=== PATIENT | male | born 1975 | race Asian ===

== ENCOUNTER 2025-05-03 18:53 | Emergency (ER) | payer OTHER ==
[~2025-05-03] VITALS: Ht 180.3 cm; Wt 106.6 kg
[2025-05-03] MEDS ORDERED: ATOR10TA PO (19:31)
[2025-05-03] MEDS ORDERED: EMPA25TA PO (19:31)
[2025-05-03] MEDS ORDERED: METF-442 PO (19:31)
[2025-05-03] MEDS ORDERED: HYDR25TA4 PO (19:31)
[2025-05-03] MEDS ORDERED: LOSA100T32 PO (19:31)
[2025-05-03] MEDS ORDERED: NAPR-1194 PO (19:31)
[2025-05-03] MEDS ORDERED: HYDROMORPHONE 1 MG/1 ML DISP.SYRIN ONE (19:47)
[2025-05-03] MEDS ORDERED: ONDANSETRON 4 MG/2 ML VIAL ONE (19:47)
[2025-05-03 20:14] LABS: PLATELET COUNT (AUTO) 433 K/uL (152-348); RED BLOOD CELL COUNT(AUTO) 3.93 MIL/uL (4.06-5.63); RED CELL DISTRIBUTION WIDTH 13.9 % (12.1-16.2)
[2025-05-03] MEDS: ONDANSETRON 4 MG/2 ML VIAL IV ONE (20:15)
[2025-05-03] MEDS: IV NORMAL SALINE 1000 ML BAG IV ONE ×2 (20:15→20:33)
[2025-05-03] MEDS: HYDROMORPHONE 1 MG/1 ML DISP.SYRIN IV ONE (20:15)
[2025-05-03 20:24] LABS: CREATININE 1.6 mg/dL (0.6-1.3); SODIUM SERUM 132 mmol/L (136-145); UREA NITROGEN, BLOOD 32 mg/dL (7-18)
[2025-05-03 20:25] LABS: WHITE BLOOD COUNT (AUTO) 31.7 K/uL (3.6-10.2)
[2025-05-03 20:31] LABS: ASPARTATE AMINOTRANSFERASE 39 U/L (15-37); TOTAL PROTEIN, SERUM 8.4 g/dL (6.4-8.2)
[2025-05-03 20:32] LABS: *BILIRUBIN,URIN NEGATIVE (NEGATIVE); *BLOOD, URINE 3+ (NEGATIVE); *CLARITY,URINE CLOUDY (CLEAR); *COLOR,URINE DARK YELLOW (YELLOW); *KETONES,URINE NEGATIVE (NEGATIVE); *PROTEIN,URINE 2+ (NEGATIVE); *UROBILINOGEN,URINE 2.0 E.U./dl (NORMAL); LEUKOCYTE ESTERASE ,URINE TRACE (NEGATIVE); NITRITE, URINE POSITIVE (NEGATIVE); UGLUCOSE 3+ (NEGATIVE)
[2025-05-03] MEDS ORDERED: IOHEXOL 300MG/ML 100 ML INFUS..BTL ONE (20:32)
[2025-05-03] MEDS ORDERED: CEFTRIAXONE /D5W 50ML IVPB **ER PYXIS IV ONE (20:35)
[2025-05-03] MEDS ORDERED: PIPERACILLIN/TAZOBACTAM/D5W 50 ML IV ONE (20:37)
[2025-05-03 20:48] LABS: SQUAMOUS EPITHELIAL CELL,UR FEW /HPF (NONE SEEN)
[2025-05-03 20:50] LABS: URINE AMORPHOUS URATE MODERATE /HPF
[2025-05-03 20:58] LABS: BAND % (MANUAL) 2 % (0-10); LYMPHOCYTES % (MANUAL) 3 % (20-40); MONOCYTES % (MANUAL) 3 % (2-10); NEUTROPHILS % (MANUAL) 92 % (42-75)
[2025-05-03] MEDS: PIPERACILLIN SODIUM/TAZOBACTAM 3.375 G in IV DEXTROSE 5% 50 ML IV ONE (20:58)
[2025-05-03 20:59] LABS: PLATELET ESTIMATE SLIGHT INCREASED
[2025-05-04] MEDS: IV NORMAL SALINE 500 ML BAG IV ONE (02:06)
[2025-05-04 03:29] LABS: CREATININE 1.2 mg/dL (0.6-1.3); SODIUM SERUM 138.0 mmol/L (136-145); UREA NITROGEN, BLOOD 25.0 mg/dL (7-18)
[2025-05-04 03:59] LABS: PLATELET COUNT (AUTO) 345 K/uL (152-348); RED BLOOD CELL COUNT(AUTO) 3.04 MIL/uL (4.06-5.63); RED CELL DISTRIBUTION WIDTH 14.0 % (12.1-16.2); WHITE BLOOD COUNT (AUTO) 24.3 K/uL (3.6-10.2)
[2025-05-04] MEDS ORDERED: IOHEXOL 350 100 ML INFUS..BTL ONE (08:44)
[2025-05-04] MEDS ORDERED: SWABABLE VALVE TRANSFER SET EA MC ONE (08:44)
[2025-05-04] MEDS ORDERED: IV NORMAL SALINE 250 ML IV ONE (08:45)
[2025-05-04] MEDS ORDERED: PHYTONADIONE 10 MG/1 ML AMPUL ONE (11:58)
[2025-05-04] MEDS: PHYTONADIONE 10 MG/1 ML AMPUL SQ ONE (12:03)
[2025-05-04] MEDS ORDERED: ONDANSETRON 4 MG/2 ML VIAL ONE (13:45)
[2025-05-04] MEDS ORDERED: HYDROMORPHONE 1 MG/1 ML DISP.SYRIN ONE (13:45)
[2025-05-04] MEDS: ONDANSETRON 4 MG/2 ML VIAL IV ONE (13:48)
[2025-05-04] MEDS: HYDROMORPHONE 1 MG/1 ML DISP.SYRIN IV ONE (13:48)
[2025-05-04 15:23] VITALS: BP 109/65; O2SAT 94
== END 2025-05-04 15:34 | disposition short-term general hospital (02) ==
LOC: ER 18:53
DX: A41.9 Sepsis, unspecified organism (principal); S36.92XA Contusion of unspecified intra-abdominal organ, initial encounter; C78.7 Secondary malignant neoplasm of liver and intrahepatic bile duct; N12 Tubulo-interstitial nephritis, not specified as acute or chronic; I11.9 Hypertensive heart disease without heart failure; E11.9 Type 2 diabetes mellitus without complications; E78.00 Pure hypercholesterolemia, unspecified; Z79.84 Long term (current) use of oral hypoglycemic drugs; Z79.899 Other long term (current) drug therapy; Z20.822 Contact with and (suspected) exposure to COVID-19
CPT/HCPCS: 36415; 70030-TC; 71045; 83605; 83690; 84484; 85025; 85730; 86850; 86900; 86901; 86920; 87040; 87086; A4606; A4663; J0696; J1171; J2405; J2543; J3430; J7040; Q9967